=== PATIENT | male | born 1925 | race Caucasian/White ===

== ENCOUNTER 2016-12-23 09:49 | Inpatient (IN) | payer MEDICARE, BC ==
[2016-12-23] MEDS ORDERED: PANTOPRAZOLE 40 MG/10 ML VIAL IVP STA (10:52)
[2016-12-23] MEDS ORDERED: SODIUM CHLORIDE 0.9% 1,000 ML IV STA (10:52)
--- NOTE | 2016-12-23 10:54 | ED ---
General Adult HPI - General Chief complaint: Abdominal Pain Stated complaint: pain Time Seen by Provider: 12/23/16 10:16 Source: patient, RN notes reviewed Mode of arrival: ambulatory Limitations: no limitations - History of Present Illness Initial comments: Patient is a pleasant 89-year-old male presenting to the emergency Department with abdominal problems. Patient does have a history of kidney cancer that is just being observed. Patient has had decreased appetite for several months. Patient has had increased fatigue over the past several weeks. Patient has also had some constipation. Patient had an outpatient MRI done recently. Results are concerning for diffuse lymph nodes. Patient received a call from primary care physician who requested admission with oncology consult. Patient did have abdominal discomfort this morning however has resolved. - Related Data Home Medications Medication Instructions Recorded Confirmed Atorvastatin [Lipitor] 40 mg PO HS 03/02/16 12/23/16 Aspirin EC [Ecotrin Low Dose] 81 mg PO DAILY 07/16/16 12/23/16 Docusate [Colace] 100 mg PO BID 07/16/16 12/23/16 Naproxen Sodium [Aleve] 220 mg PO DAILY PRN 12/23/16 12/23/16 Previous Rx's Medication Instructions Recorded Finasteride [Proscar] 5 mg PO DAILY tab 03/03/16 Metoprolol Tartrate [Lopressor] 25 mg PO BID tab 03/03/16 Allergies Allergy/AdvReac Type Severity Reaction Status Date / Time No Known Allergies Allergy Verified 12/23/16 10:41 Review of Systems ROS Statement: Those systems with pertinent positive or pertinent negative responses have been documented in the HPI. ROS Other: All systems not noted in ROS Statement are negative. Constitutional: Denies: fever Eyes: Denies: eye pain ENT: Denies: ear pain Respiratory: Denies: cough Cardiovascular: Denies: chest pain Endocrine: Reports: fatigue Gastrointestinal: Reports: abdominal pain, constipation Genitourinary: Denies: dysuria Musculoskeletal: Denies: back pain Skin: Denies: rash Neurological: Denies: headache Past Medical History Past Medical History: Coronary Artery Disease (CAD), Cancer, CVA/TIA, Hyperlipidemia, Hypertension, Prostate Disorder Additional Past Medical History / Comment(s): prostate cancer History of Any Multi-Drug Resistant Organisms: None Reported Past Surgical History: Coronary Bypass/CABG, Prostate Surgery Additional Past Surgical History / Comment(s): quadriple bypass, Right leg plate Past Anesthesia/Blood Transfusion Reactions: No Reported Reaction Past Psychological History: No Psychological Hx Reported Smoking Status: Former smoker Past Alcohol Use History: Rare Past Drug Use History: None Reported - Past Family History Father Family Medical History: CVA/TIA Mother Family Medical History: Cancer Additional Family Medical History / Comment(s): Stomach cancer General Exam Limitations: no limitations General appearance: alert, in no apparent distress Head exam: Present: atraumatic Eye exam: Present: normal appearance, PERRL ENT exam: Present: normal oropharynx Neck exam: Present: normal inspection Respiratory exam: Present: normal lung sounds bilaterally Cardiovascular Exam: Present: regular rate, normal rhythm GI/Abdominal exam: Present: soft, normal bowel sounds. Absent: distended, tenderness, guarding, rebound, rigid, pulsatile mass Extremities exam: Present: normal inspection. Absent: pedal edema, calf tenderness Neurological exam: Present: alert Psychiatric exam: Present: normal affect, normal mood Skin exam: Absent: rash Course Vital Signs 12/23/16 09:53 Temperature 97.8 F Pulse Rate 66 Respiratory 18 Rate Blood Pressure 134/67 O2 Sat by Pulse 98 Oximetry Medical Decision Making - Medical Decision Making Patient and family were updated on plan. Case was discussed in detail with Dr. Franco, who will admit for Dr. Hodges. - Lab Data Result diagrams: 12/23/16 11:20 12/23/16 11:20 Lab Results 12/23/16 12/23/16 12/23/16 Range/Units 11:20 11:20 11:20 WBC 2.9 L (3.8-10.6) k/uL RBC 4.43 (4.30-5.90) m/uL Hgb 12.8 L (13.0-17.5) gm/dL Hct 37.7 L (39.0-53.0) % MCV 85.2 (80.0-100.0) fL MCH 28.8 (25.0-35.0) pg MCHC 33.9 (31.0-37.0) g/dL RDW 16.5 H (11.5-15.5) % Plt Count 170 (150-450) k/uL Neutrophils % (Manual) 50.0 % Lymphocytes % (Manual) 29.0 % Monocytes % (Manual) 21.0 % Neutrophils # (Manual) 1.5 (1.3-7.7) k/uL Lymphocytes # (Manual) 0.8 L (1.0-4.8) k/uL Monocytes # (Manual) 0.6 (0-1.0) k/uL Nucleated RBCs 0 (0-0) /100 WBC Manual Slide Review Performed Poikilocytosis (manual Present Anisocytosis Slight PT 11.0 (9.0-12.0) sec INR 1.1 (<1.1) APTT 26.1 (22.0-30.0) sec Sodium 134 L (137-145) mmol/L Potassium 4.4 (3.5-5.1) mmol/L Chloride 100 (98-107) mmol/L Carbon Dioxide 26 (22-30) mmol/L Anion Gap 8 mmol/L BUN 14 (9-20) mg/dL Creatinine 0.75 (0.66-1.25) mg/dL Est GFR (MDRD) Af Amer >60 (>60 ml/min/1.73 sqM) Est GFR (MDRD) Non-Af >60 (>60 ml/min/1.73 sqM) Glucose 104 H (74-99) mg/dL Calcium 8.6 (8.4-10.2) mg/dL Total Bilirubin 1.1 (0.2-1.3) mg/dL AST 27 (17-59) U/L ALT 32 (21-72) U/L Alkaline Phosphatase 72 (38-126) U/L Total Protein 6.2 L (6.3-8.2) g/dL Albumin 3.2 L (3.5-5.0) g/dL Amylase 47 (30-110) U/L Lipase 192 (23-300) U/L - Radiology Data Radiology results: image reviewed (KUB shows no acute process) Disposition Clinical Impression: Abdominal pain, Retroperitoneal lymphadenopathy Disposition: ADMITTED IP TO THIS HOSP
[2016-12-23 11:38] LABS: INR 1.1 (<1.1); Partial Thromboplastin Time 26.1 sec (22.0-30.0)
--- NOTE | 2016-12-23 11:41 | XR ---
EXAMINATION TYPE: XR KUB DATE OF EXAM: 12/23/2016 11:34 AM CLINICAL HISTORY: Abdominal pain not further specified per order. Weakness and weight loss per patien t. TECHNIQUE: 2 upright KUB images of the abdomen are obtained COMPARISON: CT urogram December 18, 2016.. FINDINGS: Scattered gas is seen in non-distended small bowel loops. Gas and fecal material is seen in non-distended colon. There is no visceromegaly, pneumoperitoneum, or abnormal calcification appr eciated. Sternal wires and mediastinal clips in visualized lung bases are redemonstrated. Levoconvex scoliosis to the thoracolumbar spine is present. IMPRESSION: Overall nonobstructive bowel gas pattern. Prominent retroperitoneal adenopathy on recent CT warrants hematology/oncology follow-up. Consider neoplasm/lymphoma.
[2016-12-23 11:46] LABS: Anisocytosis Slight; Aty Lym Flag Marked; CH 27.6; CHCM 32.5; HCT 37.7 % (39.0-53.0); HDW 2.58; HGB 12.8 gm/dL (13.0-17.5); MCH 28.8 pg (25.0-35.0); MCHC 33.9 g/dL (31.0-37.0); MCV 85.2 fL (80.0-100.0); Mean Platelet Volume 8.1; RBC 4.43 m/uL (4.30-5.90); RDW 16.5 % (11.5-15.5); WBC 2.9 k/uL (3.8-10.6); WBC (Perox) 2.79
[2016-12-23 11:48] LABS: ALT 32 U/L (21-72); AST 27 U/L (17-59); Add Differential Manual Differential; Alkaline Phosphatase 72 U/L (38-126); Amylase 47 U/L (30-110); Anion Gap 8 mmol/L; Blood Urea Nitrogen 14 mg/dL (9-20); Calcium 8.6 mg/dL (8.4-10.2); Carbon Dioxide 26 mmol/L (22-30); Chloride 100 mmol/L (98-107); Glucose 104 mg/dL (74-99); Non-African American GFR(MDRD) >60 (>60 ml/min/1.73 sqM); Potassium 4.4 mmol/L (3.5-5.1); Sodium 134 mmol/L (137-145); Total Bilirubin 1.1 mg/dL (0.2-1.3); Total Protein 6.2 g/dL (6.3-8.2)
[2016-12-23 11:55] LABS: Nucleated Red Blood Cells 0 /100 WBC (0-0); Total Cells Counted 100
[2016-12-23 11:56] LABS: Manual Review Performed
[2016-12-23] MEDS ORDERED: NALOXONE 0.4 MG/ML 1 ML VIAL IV PRN (12:28)
[2016-12-23] MEDS ORDERED: MORPHINE SULFATE 4 MG/ML SYRINGE IV PRN (12:28)
[2016-12-23] MEDS ORDERED: ACETAMINOPHEN TAB 325 MG TAB PO PRN (12:28)
[2016-12-23] MEDS ORDERED: SODIUM CHLORIDE 0.9% 1,000 ML IV SCH (12:30)
[2016-12-23 13:25] LABS: Appearance,Urine Clear (Clear); Bacteria,Urine Rare /hpf; Bilirubin,Urine Negative (Negative); Glucose,Urine (UA) Negative (Negative); Ketones,Urine Negative (Negative); Leukocyte Esterase,Urine Moderate (Negative); Mucus,Urine Rare /hpf; Nitrite,Urine Negative (Negative); PH, Urine 6.5 (5.0-8.0); Particle Count 6584; Protein,Urine Negative (Negative); Specific Gravity,Urine 1.008 (1.001-1.035); Squamous Epithelial Cell,Urine <1 /hpf (0-4); UA Billing (MACRO vs. MICRO) MICRO; WBC,Urine 38 /hpf (0-5)
[2016-12-23] MEDS ORDERED: CIPROFLOXACIN HCL 500 MG TAB PO STA (15:40)
[2016-12-23 17:49] VITALS: RESP 16
[2016-12-23] MEDS: IBUPROFEN 400 MG TAB PO PRN (20:22)
[2016-12-23] MEDS ORDERED: POLYETHYLENE GLYCOL 3350 17 GM POWD.PACK PO PRN (20:35)
[2016-12-23] MEDS ORDERED: ATORVASTATIN 40 MG TAB PO SCH (21:15)
[2016-12-23] MEDS ORDERED: MELATONIN 5 MG TABLET PO SCH (21:15)
[2016-12-23] MEDS: DOCUSATE 100 MG CAP PO SCH (22:29)
[2016-12-23] MEDS: METOPROLOL TARTRATE 25 MG TAB PO SCH (22:30)
[2016-12-23] MEDS: DRONABINOL 2.5 MG CAP PO SCH (22:37)
--- NOTE | 2016-12-23 22:51 | HP ---
DATE OF ADMISSION: Patient is an 89-year-old gentleman who came into the emergency department with non-specific abdominal pain believed to be secondary to constipation. Patient in the past had benign prostatic hypertrophy. Patient was following up with a urologist and incidentally was found to have a renal mass, most probably cancer. Later the patient was found to have lymphadenopathy which has been worsening. It kept on worsening and recent outpatient imaging of the abdomen ( ) lymphadenopathy. Patient is a bit dehydrated, because of which patient will be admitted. Will give him IV fluids and will also treat his constipation. Patient's main complaint is patient has been losing weight constantly and has been getting weaker, probably due to ( ) cachexia. Patient denied any fever or chills. Patient denied any cough, runny nose, diarrhea. Denied any significant abdominal pain. Patient apparently came in with abdominal discomfort, resolved at this point of time. Patient will be admitted and Oncology was consulted to discuss regarding options of renal cell cancer, now probably metastatic, which was apparently evident last February (2015). Home medications include: 1. Atorvastatin. 2. Aspirin. 3. Docusate. 4. Naproxen. 5. Finasteride. 6. Metoprolol. ALLERGIES: NO KNOWN DRUG ALLERGIES. REVIEW OF SYSTEMS: CONSTITUTIONAL: No fever, no malaise, no fatigue. HEENT: No recent visual problems or hearing problems. Denied any sore throat. CARDIOVASCULAR: No chest pain, orthopnea, PND, no palpitations, no syncope. PULMONARY: No shortness of breath, no cough, no hemoptysis. GASTROINTESTINAL: As described in HPI. NEUROLOGICAL: No headaches, no weakness, no numbness. HEMATOLOGICAL: Denies any bleeding or petechiae. GENITOURINARY: Denies any burning micturition, frequency, or urgency. MUSCULOSKELETAL/RHEUMATOLOGICAL: Denies any joint pain, swelling, or any muscle pain. ENDOCRINE: Denies any polyuria or polydipsia. GENERAL: As described in HPI. The rest of the 14 point review of systems is negative. Past medical history is significant for: 1. Coronary artery disease. 2. CVA/ TIA. 3. Hyperlipidemia. 4. Hypertension. 5. Benign prostatic hypertrophy. 6. Coronary artery bypass grafting in the past. 7. Quadruple bypass surgery. SOCIAL HISTORY: Former smoker. Denied any alcohol abuse or any drug abuse. FAMILY HISTORY: Significant for father with CVA, TIA, mother with abdominal cancer. PHYSICAL EXAMINATION: VITAL SIGNS: Temperature 97.8, pulse of 66, respiratory rate of 18, blood pressure 134/67. Saturating at 98% on room air. GENERAL: Alert and oriented x3. HEENT: Pupils are round and equally reacting to light. EOMI. No scleral icterus. No conjunctival pallor. Normocephalic, atraumatic. No pharyngeal erythema. No thyromegaly. CARDIOVASCULAR: S1 and S2 present. No murmurs, rubs, or gallops. PULMONARY: Chest is clear to auscultation, no wheezing or crackles. ABDOMEN: A bit tympanitic. MUSCULOSKELETAL: No joint swelling or deformity. EXTREMITIES: No cyanosis, clubbing, or pedal edema. NEUROLOGICAL: Gross neurological examination did not reveal any focal deficits. SKIN: No rashes. LABORATORY DATA: CBC, CMP significant for low sodium of 134. UA showed moderate urobilinogen, mild leukocyte esterase, squamous epithelial cells. Patient denied any UTI symptoms of dysuria or urinary frequency. ASSESSMENT AND PLAN: 1. Hypovolemic hyponatremia, probably secondary to clinical dehydration ( ) patient ( ) due to poor oral intake and cachexia. 2. Possible urinary tract infection versus symptomatic bacteriuria. Patient is initiated on antibiotics. Will continue with that. UA is definitely abnormal, but that does not mean patient has UTI. Will await urine cultures. Until then, will continue the antibiotics. 3. Possible renal cell, metastatic. Oncology is being consulted. 4. Severe ( ) cachexia and leading to mild to moderate malnutrition. Patient will be started on Marinol and IV fluid hydration as mentioned above. 5. History of cerebrovascular accident in the past. 6. Coronary artery disease with coronary artery bypass grafting. 7. History of coronary artery bypass graft. 8. Hyperlipidemia. For above-mentioned chronic medical problems, I will go ahead and continue the home medications.
[2016-12-24] MEDS: IBUPROFEN 400 MG TAB PO PRN (02:05)
[2016-12-24] MEDS: DOCUSATE 100 MG CAP PO SCH (08:55)
[2016-12-24] MEDS: METOPROLOL TARTRATE 25 MG TAB PO SCH (08:55)
[2016-12-24] MEDS: DRONABINOL 2.5 MG CAP PO SCH (08:55)
[2016-12-24] MEDS ORDERED: CIPROFLOXACIN HCL 500 MG TAB PO SCH (09:00)
[2016-12-24] MEDS ORDERED: FINASTERIDE 5 MG TAB PO SCH (09:00)
[2016-12-24 09:15] VITALS: BP 137/73; PULSE 72; TEMP 97.3
[2016-12-24 10:41] LABS: Anion Gap 8 mmol/L; Blood Urea Nitrogen 14 mg/dL (9-20); Calcium 8.3 mg/dL (8.4-10.2); Carbon Dioxide 24 mmol/L (22-30); Chloride 100 mmol/L (98-107); Glucose 138 mg/dL (74-99); Non-African American GFR(MDRD) >60 (>60 ml/min/1.73 sqM); Potassium 3.7 mmol/L (3.5-5.1); Sodium 132 mmol/L (137-145)
[2016-12-24 11:14] VITALS: BMI 22.9
--- NOTE | 2016-12-24 13:25 | P.CONS ---
History of Present Illness - Reason for Consult Consult date: 12/24/16 lymphadenopathy Requesting physician: Aurelio Smith - Chief Complaint weakness - History of Present Illness Mr. 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 Pt was told due to his age that he was not a candidate for aggressive therapy. Pt has done well overall and was recently in [place] when he started having fevers and was getting progressively weaker, he has lost about 25 lbs in 3 months, and he has no appetite. He and his family would like to now get opinion from an Oncologist, discuss diagnosis, prognosis and treatment options. Pt denies any fever since admit, no chest pain, cough, abd pain, bloating, dyauria, hematuria, diarrhea or constipation. Review of Systems All systems: negative Constitutional: Reports as per HPI Past Medical History Past Medical History: Coronary Artery Disease (CAD), Cancer, CVA/TIA, Hyperlipidemia, Hypertension, Prostate Disorder Additional Past Medical History / Comment(s): ENLARGED prostate, DX 2015 AT [facility] W/ mass in "KIDNEY CANCER" THAT DRS HAVE been OBSERVING(NOTHING DONE YET) , DRY MACULAR DEGENERATION, RT CAROTID STENOSIS, kidney stones, CONSTIPATION, UTI, TIA 03-03-16, decreased appetitie 25# wt loss since aug 2016 History of Any Multi-Drug Resistant Organisms: None Reported Past Surgical History: Coronary Bypass/CABG, Hernia Repair, Prostate Surgery Additional Past Surgical History / Comment(s): quadriple bypass, Right leg plate , prostate sx d/t enlarged prostate, cataracts removed. Past Anesthesia/Blood Transfusion Reactions: No Reported Reaction Past Psychological History: No Psychological Hx Reported Additional Psychological History / Comment(s): lives with his , no pets, no outside services. has walker to use if needed. Smoking Status: Former smoker Past Alcohol Use History: Rare Additional Past Alcohol Use History / Comment(s): started smoking 1944,quit 1966 Past Drug Use History: None Reported - Past Family History Father Family Medical History: CVA/TIA Mother Family Medical History: Cancer Additional Family Medical History / Comment(s): Stomach cancer Medications and Allergies Home Medications Medication Instructions Recorded Confirmed Type Atorvastatin [Lipitor] 40 mg PO HS 03/02/16 12/23/16 History Aspirin EC [Ecotrin Low Dose] 81 mg PO DAILY 07/16/16 12/23/16 History Docusate [Colace] 100 mg PO BID 07/16/16 12/23/16 History Naproxen Sodium [Aleve] 220 mg PO DAILY PRN 12/23/16 12/23/16 History Allergies Allergy/AdvReac Type Severity Reaction Status Date / Time No Known Allergies Allergy Verified 12/23/16 10:41 Physical Exam Vitals: Vital Signs Temp Pulse Pulse Resp BP BP Pulse Ox 12/24/16 08:00 16 12/24/16 07:00 97.3 F L 72 20 137/73 96 12/24/16 00:00 81 16 12/23/16 21:21 97.6 F 81 16 122/68 96 12/23/16 17:45 97.2 F L 75 16 144/68 98 12/23/16 16:17 97.8 F 75 18 144/68 95 12/23/16 13:34 97 F L 71 16 141/67 96 Intake and Output 12/23/16 12/24/16 12/24/16 22:59 06:59 14:59 Intake Total 200 600 Balance 200 600 Intake: Intake, IV Titration 200 200 Amount Sodium Chloride 0.9% 1, 200 200 000 ml @ 20 mls/hr IV . Q24H [facility] Rx#:[id number] Oral 400 Other: Voiding Method Toilet Toilet Urinal Urinal # Voids 2 Weight 72.575 kg Patient Weight 12/25/16 06:59 Weight 72.575 kg - Constitutional General appearance: cooperative, no acute distress, thin - EENT Eyes: anicteric sclerae, EOMI, normal appearance ENT: hearing grossly normal, normal oropharynx - Neck Neck: no lymphadenopathy - Respiratory Respiratory: bilateral: CTA - Cardiovascular Heart sounds: normal: S1, S2 leg Peripheral Edema: bilateral: None - Gastrointestinal General gastrointestinal: no absent bowel sounds, no decreased bowel sounds, no distended, no hepatomegaly, no hyperactive bowel sounds, normal bowel sounds, no organomegaly, no rigid, no scaphoid, soft, no splenomegaly, no tenderness, no umbilical hernia, no ventral hernia - Neurologic Neurologic: CNII-XII intact - Musculoskeletal Musculoskeletal: generalized weakness, strength equal bilaterally - Psychiatric Psychiatric: A&O x's 3, appropriate affect, intact judgment & insight Results CBC & Chem 7: 12/23/16 11:20 12/24/16 10:20 Labs: Abnormal Lab Results - Last 24 Hours (Table) 12/23/16 12/24/16 Range/Units 12:37 10:20 Sodium 132 L (137-145) mmol/L Glucose 138 H (74-99) mg/dL Calcium 8.3 L (8.4-10.2) mg/dL Ur Leukocyte Esterase Moderate H (Negative) Urine WBC 38 H (0-5) /hpf Urine Bacteria Rare H (None) /hpf Urine Mucus Rare H (None) /hpf Microbiology - Last 24 Hours (Table) 12/23/16 12:37 Urine Culture - Preliminary Urine,Voided Abdominal x-ray: report reviewed Assessment and Plan (1) 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 Chandler discussed with pt and family findings on imaging. Pt has a history of TCC diagnosed March of 2016, no treatment. Diagnosis was discussed and the high probability that the lymphadenopathy is metastatic disease. Prognosis with and without treatment, options for treatment-being chemotherapy-and side effects of chemotherapy were all discussed. All pt and family questions were answered to their satisfaction. Case discussed with IM, pt is going to be discharged, he will f/u out patient with Dr. Chandler for decisions as to how pt would like to proceed with care.
--- NOTE | 2016-12-25 07:39 | DS ---
DATE OF ADMISSION: 12/23/2016 DATE OF DISCHARGE: 12/24/2016 Patient is an 89-year-old, came to the emergency department with nonspecific abdominal pain probably related to constipation, constipation that improved. The patient was believed to be dehydrated and mildly hyponatremic but with IV fluids his hyponatremia got worsened. So SIADH is a consideration. Will repeat a basic metabolic profile in 3 more days. Patient was evaluated by Oncology and patient will follow oncology services as outpatient. The patient will follow up with Dr. Brendon Chandler as an outpatient. Patient will be discharged today. I do not believe patient has urinary tract infection. Patient has asymptomatic bacteriuria. Received 2 days of antibiotics. Do not believe patient will require any antibiotics at this point of time. Patient does not have any signs or symptoms of sepsis and does not have any symptoms of urinary tract infection. Patient was seen and examined on the day of discharge. Vitals are stable. PHYSICAL EXAMINATION: GENERAL: The patient is alert and oriented x3. HEENT: Pupils are round and equally reacting to light. EOMI. No scleral icterus. No conjunctival pallor. Normocephalic, atraumatic. No pharyngeal erythema. No thyromegaly. CARDIOVASCULAR: S1 and S2 present. No murmurs, rubs, or gallops. PULMONARY: Chest is clear to auscultation, no wheezing or crackles. ABDOMEN: Soft, nontender, nondistended, normoactive bowel sounds. No palpable organomegaly. MUSCULOSKELETAL: No joint swelling or deformity. EXTREMITIES: No cyanosis, clubbing, or pedal edema. NEUROLOGICAL: Gross neurological examination did not reveal any focal deficits. SKIN: No rashes. ASSESSMENT AND PLAN: 1. Hyponatremia, initially thought to be hypovolemic hyponatremia but worsened with IV fluids. May have syndrome of inappropriate antidiuretic hormone secretion. At this point of time, nothing needs to be done. Will repeat basic metabolic profile in 3 days. Further decisions depending on his repeat sodium. If it continues to go down then syndrome of inappropriate antidiuretic hormone secretion needs to be considered. 2. Asymptomatic bacteruria, which does not warrant any antibiotics, ruled out urinary tract infection. 3. Renal cell cancer metastatic and patient will follow with oncology as an outpatient. 4. Severe cachexia. 5. Mild to moderate protein calorie malnutrition for which patient will be discharged on Marinol. 6. Cerebrovascular accident in the past. 7. Coronary artery disease with coronary artery bypass graft in the past. 8. Hyperlipidemia. Patient will be discharged today. Please refer to my depart summary for further list of discharge medications. Activity as tolerated. Regular diet because of his nutritional deficiency, hyponatremia in spite of his coronary artery disease. Activity as tolerated. Spent greater than 35 minutes in total discharge process.
== END 2016-12-24 11:55 | disposition home or self-care (01) | DRG 644 ==
LOC: EC 09:49 → 5ONC 12:29
PROVIDERS: ADMIT Internal Medicine; ATTEND Internal Medicine
DX: E22.2 Syndrome of inappropriate secretion of antidiuretic hormone (principal); C64.9 Malignant neoplasm of unspecified kidney, except renal pelvis; E44.0 Moderate protein-calorie malnutrition; C79.9 Secondary malignant neoplasm of unspecified site; E86.0 Dehydration; Z95.1 Presence of aortocoronary bypass graft; I65.21 Occlusion and stenosis of right carotid artery; E78.5 Hyperlipidemia, unspecified; H35.30 Unspecified macular degeneration; I10 Essential (primary) hypertension; R82.71 Bacteriuria; I25.10 Atherosclerotic heart disease of native coronary artery without angina pectoris; K59.00 Constipation, unspecified; N40.0 Benign prostatic hyperplasia without lower urinary tract symptoms; Z79.82 Long term (current) use of aspirin; Z79.899 Other long term (current) drug therapy; Z87.891 Personal history of nicotine dependence; Z80.0 Family history of malignant neoplasm of digestive organs; Z80.8 Family history of malignant neoplasm of other organs or systems
CPT/HCPCS: 36415; 74000; 80048; 80053; 81001; 82150; 83690; 85025; 85610; 85730; 87077; 87086; 87186; 96361; 96374; 99285